=== PATIENT | female | born 1970 | race Caucasian/White ===

== ENCOUNTER 2017-04-18 14:07 | Emergency (ER) | payer OTHER ==
[~2017-04-18] VITALS: Ht 172.7 cm; Wt 76.2 kg
[~2017-04-18 14:07] MED LIST: ABILIFY; ALBUTEROL INH PO; ALPRAZOLAM OR; AMOXICILLIN 50500 MG PO; AMOXICILLIN500 M1 PO; AMOXICILLIN875 MG PO; ASPIRIN EC81 M1 PO; ATIVAN1 MG PO; AUGMENTIN 500-1 EACH PO; AUGMENTIN 875875 MG PO; BACTRIM DS TAB1 EACH PO; BUPROPION; CARISOPRODOL 3350 MG PO; CHLORPROMAZINE25 M1 PO; CIPRO; CLEOCIN HCL300 MG PO; DARVOCET-N 1001 EACH PO; DESYREL OR; DESYREL300 MG PO; DIFLUCAN150 MG PO; DOXYCYCLINE 10100 MG PO; EFFEXOR; FLAGYL500 MG PO; FLEXERIL PO; GEODON; HUMALOG; HUMALOG SUBQ; HUMALOG100 UNIT/1 SQ; HUMULIN 70100 UNIT/2 SQ; HYDROCHLOROTHIA25 M1 PO; HYDROCODONE-AP1 EAC6 PO; HYDROXYZINE; HYOSCYAMIN125 MCG/5 PO; IBUPROFEN 800800 M1 PO; LAMICTAL XR100 MG PO; LANTUS; LANTUS SC; LEVEMIR FL100 UNIT/2 SQ; LIPITOR20 MG PO; LISINOPRIL; LISINOPRIL10 MG PO; MEDROL DOSPAK21 TA1 PO; NAPROSYN500 MG PO; NORCO 5-325 TA1 EACH PO; NOVOLOG FL100 UNIT/M SC; NOVOLOG100 UNIT/1; ONE TOUCH DELI1 EACH MC; PAXIL10 MG PO; PENICILLIN V P500 MG PO; PENICILLIN VK250 MG PO; PENICILLIN VK500 M1 PO; PENICILLIN VK500 MG PO; PERCOCET 5-3251 EACH PO; PERMETHRIN60 GM TOP; PRILOSEC 20 MG20 MG PO; RESTORIL; RESTORIL30 MG PO; TESSALON PERLE100 MG PO; TESSALON200 MG PO; TORADOL 10 MG T10 MG PO; TRAZODONE 150150 M1 PO; ULTRAM 50MG TAB50 MG PO; VENTOLIN HFA 1818 GM INH; VENTOLIN17 GM INH; VICODIN 5-5001 EACH PO; VICOPROFEN 2001 EACH PO; VISTARIL 25 MG25 M1 PO; WELLBUTRIN XL150 M2 PO; XANAX 0.25 MG0.25 MG PO; XANAX 0.5 MG0.5 M1 PO; ZOFRAN4 MG PO; ZOLOFT 50 MG TA50 M1 PO; ZPAK PO; [UNRECOGNIZED DRUG - OTHER]
[2017-04-18 14:40] LABS: ABSOLUTE NEUTROPHILS 10.1 thou/uL (1.4-8.2); BASOPHILS 1.3 % (0.0-2.0); EOSINOPHILS 0.4 % (0.0-3.0); HEMATOCRIT 41.2 % (37.0-47.0); HEMOGLOBIN 12.9 gm/dL (12.0-15.0); LYMPHOCYTES 14.5 % (24.0-44.0); MCH 23.9 pg (26.0-34.0); MCHC 31.3 g/dL (28.0-37.0); MCV 76.3 fL (80.0-100.0); MONOCYTES 3.7 % (1.0-8.0); PLATELET COUNT 340 thou/uL (150-400); POLYS 80.1 % (36.0-66.0); RDW 16.5 % (10.5-14.5); WBC 12.6 thou/uL (4.0-11.0)
[2017-04-18 14:41] LABS: MANUAL DIFF NO
[2017-04-18 14:45] LABS: CREATININE 0.8 mg/dL (0.6-1.0); POTASSIUM 4.1 mmol/L (3.5-5.1)
[2017-04-18 15:01] LABS: ALBUMIN 3.2 g/dL (3.4-5.0); TOTAL BILIRUBIN 0.5 mg/dL (<0.1-1.0); TOTAL PROTEIN 7.8 g/dL (6.4-8.2)
[2017-04-18] MEDS ORDERED: ACETAMINOPHEN-1 EAC1 PO (17:34)
[2017-04-18] MEDS ORDERED: ZOFRAN ODT8 MG PO (17:34)
[2017-04-18] MEDS ORDERED: BACTRIM DS TAB1 EACH PO (17:34)
[2017-04-18] MEDS ORDERED: LISINOPRIL20 MG PO (17:34)
[2017-04-18] MEDS ORDERED: HUMULIN N100 UNIT/1 SQ (17:34)
== END 2017-04-18 19:01 | disposition home or self-care (01) ==
LOC: ER 14:07
PROVIDERS: Emergency Medicine
DX: N61.1 Abscess of the breast and nipple (principal); I10 Essential (primary) hypertension; R11.2 Nausea with vomiting, unspecified; Z91.14 Patient's other noncompliance with medication regimen; E11.9 Type 2 diabetes mellitus without complications